=== PATIENT | female | born 1960 | race Caucasian/White ===

== ENCOUNTER 2022-02-24 15:20 | Outpatient (CLI) | payer MEDICAID, SELFPAY ==
[2022-02-24 17:26] LABS: Chloride* 104 mmol/L (96-114)
[2022-02-24 17:27] LABS: Albumin* 4.3 g/dL (3.3-5.0); Potassium* 4.5 mmol/L (3.6-5.1); Sodium* 140 mmol/L (135-149)
[2022-02-24 17:30] LABS: Alanine Aminotransferase* 20 U/L (4-35); Alkaline Phosphatase* 72 U/L (40-150); Aspartate Amino Transferase* 30 U/L (12-35); Bilirubin Total* 0.9 mg/dL (0.1-1.5); Blood Urea Nitrogen* 25 mg/dL (7-30); Carbon Dioxide* 29 mmol/L (20-32); Creatinine* 0.9 mg/dL (0.5-1.5); Estimated Glomerular Filt Rate 72 ml/min; Glucose* 86 mg/dL (60-115); Total Protein* 6.5 g/dL (6.0-8.3)
[2022-02-24 17:31] LABS: Calcium* 10.3 mg/dL (8.4-10.6)
[2022-02-24 18:00] LABS: TSH With Reflex to FT4* 0.317 uIU/mL (0.270-4.200)
== END 2022-02-24 15:21 | disposition home or self-care (01) ==
PROVIDERS: Visit Provider Family Medicine
DX: R63.4 Abnormal weight loss (principal); I10 Essential (primary) hypertension; E78.5 Hyperlipidemia, unspecified; G47.33 Obstructive sleep apnea (adult) (pediatric)
CPT/HCPCS: 80053; 84443

== ENCOUNTER 2022-05-11 12:28 | Outpatient (CLI) | payer MEDICAID, SELFPAY ==
--- NOTE | 2022-05-11 13:20 | CRLHL7_ITS ---
For Patients: As a result of the Century Cures Act, medical imaging exams and procedure reports are released immediately into your electronic medical record. You may view this report before your referring provider. If you have questions, please contact your health care provider. BILATERAL SCREENING MAMMOGRAM WITH COMPUTER-AIDED DETECTION TECHNIQUE: CC and MLO views were obtained. These mammographic images have been obtained using full-field digital technique. These mammographic images were interpreted with the benefit of computer-aided detection. COMPARISON FILM: No comparison available. Unknown provider. Re-establish baseline. FINDINGS: The breasts are heterogeneously dense, which may obscure small masses IMPRESSION: There is no radiographic evidence for malignancy. ASSESSMENT: BI-RADS Category 1: Negative RECOMMENDATION: Routine screening mammogram in 1 year. A lay language report of this examination will be provided to the patient. Mary Jo Bryant M.D. Diagnostic/Breast Radiologist [email or web address] MARTÍNEZ/Dictated by: Mary Jo Bryant MD @ 05/12/2022 8:39:00 AM (Electronically Signed)
== END 2022-05-11 12:29 | disposition home or self-care (01) ==
LOC: MAMMO 12:29
PROVIDERS: Visit Provider Family Medicine
DX: Z12.31 Encounter for screening mammogram for malignant neoplasm of breast (principal); R92.2 Inconclusive mammogram
CPT/HCPCS: 77063; 77067